=== PATIENT | male | born 1970 ===

== ENCOUNTER 2017-01-09 16:29 | Emergency (ER) | payer OTHER ==
[2017-01-09 17:39] VITALS: BMI 30.5
[2017-01-09 17:45] VITALS: RESP 18
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
[2017-01-09 19:40] VITALS: BP 128/78; PULSE 75; TEMP 98.1
[2017-01-09 23:26] VITALS: O2SAT 96
== END 2017-01-09 19:41 | disposition home or self-care (01) ==
LOC: C.ER 16:29 → SUPCPDRO 16:29 → C.ER 19:41
DX: S86.912A Strain of unspecified muscle(s) and tendon(s) at lower leg level, left leg, initial encounter (principal); X58.XXXA Exposure to other specified factors, initial encounter
CPT/HCPCS: 82948; 85378; 96372; 99284; J1885

== ENCOUNTER 2017-07-08 19:06 | Emergency (ER) | payer OTHER ==
[2017-07-08 19:07] VITALS: BMI 30.5
[2017-07-08 19:39] VITALS: TEMP 98.3
[2017-07-08] MEDS ORDERED: Sodium Chloride 0.9% 1,000 ML IV ONE (19:46)
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
[2017-07-08 20:10] LABS: BASO # 0.1 K/uL (0.0-0.2); BASO % 1.3 % (0.0-2.0); EOS # 0.3 K/uL (0.0-0.7); EOS % 6.1 % (0.0-4.0); HEMOGLOBIN 12.3 g/dL (12.0-18.0); LYMPH # 2.3 K/uL (1.0-4.3); LYMPH % 46.9 % (20.0-40.0); MEAN CELL VOLUME 84.7 fL (80.0-94.0); MEAN CORPUSCULAR HEMOGLOBIN 27.4 pg (27.0-31.0); MEAN CORPUSCULAR HGB CONC 32.4 g/dL (33.0-37.0); MEAN PLATELET VOLUME 7.7 fL (7.2-11.7); MONO # 0.7 K/uL (0.0-0.8); MONO % 15.6 % (0.0-10.0); NEUT # 1.4 K/uL (1.8-7.0); NEUT % 30.1 % (50.0-75.0); NRBC % 0.2 % (0.0-2.0); RBC 4.49 Mil/uL (4.40-5.90); RED CELL DISTRIBUTION WIDTH 13.4 % (11.5-14.5); WHITE BLOOD COUNT 4.8 K/uL (4.8-10.8)
[2017-07-08 20:22] LABS: ALB/GLOB RATIO 1.1 (1.0-2.1); ALT/SGPT 40 U/L (21-72); AST/SGOT 30 U/L (17-59); BLOOD UREA NITROGEN 18 mg/dL (9-20); CALCIUM 8.9 mg/dl (8.6-10.4); GFR AFRICAN-AMERICAN > 60; GFR NON-AFRICAN AMERICAN > 60; LIPASE 120 U/L (23-300)
[2017-07-08] MEDS ORDERED: Sodium Chloride 0.9% 1,000 ML ONE (20:27)
[2017-07-08 21:23] LABS: URINE BILIRUBIN NEGATIVE (NEGATIVE); URINE BLOOD NEGATIVE (NEGATIVE); URINE CLARITY Clear (Clear); URINE COLOR Yellow (YELLOW); URINE GLUCOSE (UA) NORMAL (Normal); URINE LEUKOCYTE ESTERASE NEG Leu/uL (Negative); URINE PROTEIN NEGATIVE (NEGATIVE)
--- NOTE | 2017-07-08 21:31 | CT ---
EXAM: CT Abdomen and Pelvis Without Intravenous Contrast CLINICAL HISTORY: 47 years old, male; Pain; Abdominal pain; Localized; Left; Additional info: Abd pain TECHNIQUE: Axial computed tomography images of the abdomen and pelvis without intravenous contrast. All CT scans at this facility use one or more dose reduction techniques, viz.: automated exposure control; ma/kV adjustment per patient size (including targeted exams where dose is matched to indication; i.e. head); or iterative reconstruction technique. Coronal and sagittal reformatted images were created and reviewed. COMPARISON: No relevant prior studies available. FINDINGS: Limitations: Lack of intravenous contrast. Lower thorax: Minimal atelectasis/scarring. Minimal focal airspace disease medial right lower lobe. 0.6 cm RIGHT lower lobe nodule. ABDOMEN: Liver: Unremarkable. Gallbladder and bile ducts: No calcified stones. No ductal dilation. Pancreas: Unremarkable. No ductal dilation. Spleen: No splenomegaly. Adrenals: No mass. Kidneys and ureters: Probable LEFT renal cyst. Too small to characterize lesion within RIGHT kidney. No renal calculi. No hydronephrosis. Stomach and bowel: No definite mural thickening. No obstruction. Appendix: Normal caliber. No inflammation. PELVIS: Bladder: Unremarkable. No stones. Reproductive: Unremarkable as visualized. ABDOMEN and PELVIS: Intraperitoneal space: No significant fluid collection. No free air. Bones/joints: Disc herniations within lower lumbar spine. No acute fracture. Soft tissues: Tiny umbilical hernia containing fat. Vasculature: Unremarkable. No aneurysm. Lymph nodes: Mild haziness within central mesentery with several associated subcentimeter lymph nodes. IMPRESSION: 1. No definite CT evidence of urolithiasis. 2. Right lower lobe atelectasis versus early pneumonia. Clinical correlation is needed. 3. Joanne mesentery, nonspecific but may represent mesenteric panniculitis, age indeterminate. Clinical correlation is needed. 4. Pulmonary nodule. For low-risk patients recommend follow-up chest CT at 6-12 months. If unchanged consider an additional follow-up CT at 18-24 months. For high-risk patients (smoking history or other known risk factors) initial follow-up chest CT at 6-12 months and if unchanged, 18-24 months. 5. Incidental/non-acute findings are described above.
[2017-07-08 21:54] VITALS: BP 135/74; PULSE 88; RESP 18
[2017-07-09 06:38] VITALS: O2SAT 96
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
== END 2017-07-08 22:31 | disposition home or self-care (01) ==
LOC: C.ER 19:06
DX: R10.12 Left upper quadrant pain (principal)
CPT/HCPCS: 71046; 73030; 74176; 80053; 81001; 83690; 85025; 96361; 96374; 99285; J1885; J7040